=== PATIENT | male | born 1965 | race Caucasian/White ===

== ENCOUNTER 2016-09-23 07:48 | Emergency (ER) | payer SELFPAY ==
[~2016-09-23] VITALS: Ht 190.5 cm; Wt 103.9 kg
[~2016-09-23 07:48] MED LIST: IBUP800T23 PO
[2016-09-23 07:56] VITALS: BP 140/101; PULSE 97; RESP 16; TEMP 98.8; O2SAT 98
[2016-09-23] MEDS ORDERED: HYDR-3516 PO (08:11)
[2016-09-23] MEDS ORDERED: AUGM875T PO (08:11)
--- NOTE | 2016-09-23 08:12 | PD ---
HPI Chief Complaint: Laceration/Skin Injury Time Seen by Provider: 08:05 Travel History International Travel<30 days: No Contact w/Intl Traveler<30days: No Traveled to known affect area: No History of Present Illness HPI She presents for laceration on his right hand. States he was at [employer] yesterday at approximately 4 PM when he cut his hand on a piece of metal. Tetanus is not up-to-date. Reports cleaning the room and aggressively yesterday however it was painful overnight. Denies any nausea vomiting diarrhea or fever. PFSH Past Medical History Hx Anticoagulant Therapy: Yes (asa ?? dose) Depression: Yes Cardiovascular Problems: Yes (NOT ON MEDS) Diminished Hearing: No Hypertension: Yes Tetanus Vaccination: Unknown Social History Alcohol Use: Yes Tobacco Use: Yes (1 ppd) Substance Use: Yes (hx of cocaine) Allergies-Medications (Allergen,Severity, Reaction): Coded Allergies: No Known Allergies (Unverified , 09/23/16) Reported Meds & Prescriptions Reported Meds & Active Scripts Active No Active Prescriptions or Reported Medications Review of Systems General / Constitutional: No: Fever Eyes: No: Visual changes HENT: No: Headaches Cardiovascular: No: Chest Pain or Discomfort Respiratory: No: Shortness of Breath Gastrointestinal: No: Abdominal Pain Genitourinary: No: Dysuria Musculoskeletal: No: Pain Skin: No Rash Neurologic: No: Weakness Psychiatric: No: Depression Endocrine: No: Polydipsia Hematologic/Lymphatic: No: Easy Bruising Physical Exam Narrative GENERAL: Well-nourished, well-developed patient. SKIN: Warm and dry. HEAD: Normocephalic. EYES: No scleral icterus. No injection or drainage. NECK: Supple, trachea midline. No JVD or lymphadenopathy. CARDIOVASCULAR: Regular rate and rhythm without murmurs, gallops, or rubs. RESPIRATORY: Breath sounds equal bilaterally. No accessory muscle use. GASTROINTESTINAL: Abdomen soft, non-tender, nondistended. MUSCULOSKELETAL: No cyanosis, or edema. BACK: Nontender without obvious deformity. No CVA tenderness. Examination of the right hand reveals a 1.5 cm laceration to the lateral aspect of the PIP joint first finger without drainage or discharge there is some swelling without cellulitic change Data Data Last Documented VS Vital Signs Date Time Temp Pulse Resp B/P Pulse Ox O2 Delivery O2 Flow Rate FiO2 2/4/17 07:56 98.8 97 16 140/101 98 [facility] Medical Decision Making Medical Screen Exam Complete: Yes Emergency Medical Condition: Yes Differential Diagnosis Laceration, cellulitis, foreign body, fracture Narrative Course Assessment and plan discussed with patient at bedside, tetanus provided Diagnosis Primary Impression: Laceration of right hand with delay in treatment Qualified Code: S61.411A - Laceration of right hand with delay in treatment, initial encounter Patient Instructions: General Instructions Additional Instructions: Encouraged to continue general wound care, keep wound clean and dry, antibiotic and pain medication as prescribed Med/Other Pt SpecificInfo: Prescription(s) given Scripts Amoxicillin-Clavulanate (Augmentin)875-125 mg [id number] Mg PO BID #10 TAB Ref 0 not for use in CrCl <30 ml/min. Prov:Krish Garay MD 09/23/16 Hydrocodone-Acetaminophen 5-325 mg Tab1 Tab PO Q6H PRN (PAIN) #20 TAB Ref 0 Prov:Krish Garay MD 09/23/16 Disposition: 01 DISCHARGE HOME Condition: Good Krish Garay MD Sep 23, 2016 08:12
[2016-09-23] MEDS ORDERED: TETANUS/DIPHTHERIA TOXOID ADULT 0.5 ML VIAL IM ONE (08:15)
== END 2016-09-23 08:19 | disposition home or self-care (01) ==
LOC: PHED 07:48
DX: S61.411A Laceration without foreign body of right hand, initial encounter (principal); I10 Essential (primary) hypertension; Z23 Encounter for immunization; Z79.01 Long term (current) use of anticoagulants; F17.210 Nicotine dependence, cigarettes, uncomplicated; W45.8XXA Other foreign body or object entering through skin, initial encounter; Y92.512 Supermarket, store or market as the place of occurrence of the external cause; Y99.8 Other external cause status
CPT/HCPCS: 90471; 90714

== ENCOUNTER 2016-10-05 08:48 | Emergency (ER) | payer SELFPAY ==
[~2016-10-05] VITALS: Ht 190.5 cm; Wt 104.9 kg
[~2016-10-05 08:48] MED LIST changes: +AUGM875T PO; +HYDR-3516 PO; -IBUP800T23 PO
[2016-10-05 08:54] VITALS: PULSE 95; RESP 16; TEMP 97.8; O2SAT 97
--- NOTE | 2016-10-05 09:36 | PD ---
HPI Chief Complaint: Injury Time Seen by Provider: 09:17 Travel History International Travel<30 days: No Contact w/Intl Traveler<30days: No Traveled to known affect area: No History of Present Illness HPI This patient complains of pain in his right heel. 2 days ago he fell off of a ladder straight down onto his right heel. He reports that he fell about 10 feet. He was wearing work boots. Now his right heel pain which is worse with weightbearing. He is no other complaint. He has no neck or back pain or leg pain. Severity symptoms is moderate. No alleviating factors. PFSH Past Medical History Hx Anticoagulant Therapy: Yes (asa ?? dose) Depression: Yes Cardiovascular Problems: Yes (NOT ON MEDS) Diminished Hearing: No Hypertension: Yes Social History Alcohol Use: Yes Tobacco Use: Yes (1 ppd) Substance Use: Yes (hx of cocaine) Allergies-Medications (Allergen,Severity, Reaction): Coded Allergies: No Known Allergies (Unverified , 10/05/16) Reported Meds & Prescriptions Reported Meds & Active Scripts Active No Active Prescriptions or Reported Medications Review of Systems General / Constitutional: No: Fever Eyes: No: Visual changes HENT: No: Headaches Cardiovascular: No: Chest Pain or Discomfort Respiratory: No: Shortness of Breath Gastrointestinal: No: Abdominal Pain Genitourinary: No: Dysuria Musculoskeletal: Positive: Pain Skin: No Rash Neurologic: No: Weakness Psychiatric: No: Depression Endocrine: No: Polydipsia Hematologic/Lymphatic: No: Easy Bruising Physical Exam Narrative SKIN: Inspection shows no rash or ulcers. Palpation shows no induration or nodules. Psych: Normal mood and affect. Normal insight and judgment. Right foot: No objective findings. There is no bruising or swelling but he is very tender in the calcaneus. Pulse and sensation intact Data Data Last Documented VS Vital Signs Date Time Temp Pulse Resp B/P Pulse Ox O2 Delivery O2 Flow Rate FiO2 10/05/16 08:54 97.8 95 16 97 Orders Foot, Heel Only ([id number]) (10/05/16 ) ^ Toro Bandage (10/05/16 10:08) Crutches (10/05/16 10:08) MDM Medical Decision Making Medical Screen Exam Complete: Yes Emergency Medical Condition: Yes Medical Record Reviewed: Yes Differential Diagnosis Calcaneal fracture, contusion, plantar fasciitis Narrative Course I have reviewed the patient's electronic medical record. I reviewed his right calcaneal x-rays which are negative for fracture but show a heel spur and degenerative change of the ankle I recommended podiatry or orthopedic follow-up. Recommended he ice elevate if needed. I gave him crutches and he requested an Toro wrap Pain medicine written Diagnosis Primary Impression: Contusion of right heel Qualified Code: S90.31XA - Contusion of right heel, initial encounter Additional Instructions: The patient was advised to follow up with travel med surg rn or orthopedist . The patient was warned about potential sedation for the medications they will receive on prescription. Avoid weightbearing while it is painful Med/Other Pt SpecificInfo: Prescription(s) given Scripts Acetaminophen-Codeine (Tylenol-Codeine #3)300-30 mg Tab1 Tab PO Q6HR PRN (PAIN) #20 TAB Ref 0 Prov:Yariel Bowie MD 10/05/16 Disposition: 01 DISCHARGE HOME Condition: Stable Yariel Bowie MD Oct 05, 2016 09:36
--- NOTE | 2016-10-05 09:58 | RADHPO ---
EXAM DATE/TIME: 10/05/2016 09:34 [facility] COMPARISON: ANKLE LEFT COMPLETE ([id number]), August 15, 2016, 9:15. INDICATIONS : Fell off ladder yesterday, pain in right heel MEDICAL HISTORY : left distal fibula fracture 2016 SURGICAL HISTORY : None. ENCOUNTER: Initial ACUITY: 1 day PAIN SCORE: 10/10 LOCATION: Right heel FINDINGS: The calcaneus is intact. There is a spur at the insertion of the plantar fascia. There are degenerati ve changes in the talocalcaneal joint posteriorly. No acute fracture is seen. CONCLUSION: Degenerative changes and heel spur. No acute fracture. Kannan Velasquez MD on October 05, 2016 at 9:56 Board Certified Radiologist. This report was verified electronically.
[2016-10-05] MEDS ORDERED: TYLETAB34 PO (10:10)
== END 2016-10-05 10:29 | disposition home or self-care (01) ==
LOC: PHEFT 08:48
DX: S90.31XA Contusion of right foot, initial encounter (principal); F17.210 Nicotine dependence, cigarettes, uncomplicated; F10.10 Alcohol abuse, uncomplicated; W11.XXXA Fall on and from ladder, initial encounter; Y93.89 Activity, other specified; Y99.9 Unspecified external cause status
CPT/HCPCS: 73650; 99283; E0113

== ENCOUNTER 2018-01-06 08:16 | Emergency (ER) | payer SELFPAY ==
[~2018-01-06] VITALS: Ht 188 cm; Wt 100.0 kg
[~2018-01-06 08:16] MED LIST changes: -AUGM875T PO; -HYDR-3516 PO; +TYLETAB34 PO
[2018-01-06 08:53] VITALS: PULSE 81; RESP 16; TEMP 97.7; O2SAT 99
[2018-01-06] MEDS ORDERED: MORPHINE SULFATE 4 MG/ML INJ IV PUSH ONE (09:15)
[2018-01-06] MEDS ORDERED: SODIUM CHLORIDE 0.9% FLUSH 10 ML FLUSH IVF PRN (09:15)
[2018-01-06] MEDS ORDERED: KETOROLAC TROMETHAMINE 30 MG/ML (IVP) VIAL IVP ONE (09:15)
[2018-01-06] MEDS ORDERED: CLINDAMYCIN INJ 900 MG in SODIUM CHLORIDE 0.9% INJ 100 ML IV ONE (09:15)
--- NOTE | 2018-01-06 09:22 | PD ---
HPI . Laceration Chief Complaint: Laceration/Skin Injury Time Seen by Provider: 09:07 Travel History International Travel<30 days: No Contact w/Intl Traveler<30days: No Traveled to known affect area: No History of Present Illness HPI Patient presents with the chief complaint of a laceration to his right index finger. He states that he cut it yesterday with a graphite grinder. He does not believe that there is a retained foreign body. He reports that his tetanus is up-to-date. Since the time of the accident, he has had increasing pain, redness and swelling starting at the laceration and radiating both proximally and distally. Pain is now rated 10/10. He reports an associated fever. Pain is exacerbated by movement and palpation. PFSH Past Medical History Hx Anticoagulant Therapy: Yes (asa ?? dose) Depression: Yes Cardiovascular Problems: Yes (NOT ON MEDS) Diminished Hearing: No Hypertension: Yes Social History Alcohol Use: Yes Tobacco Use: Yes (1 ppd) Substance Use: Yes (hx of cocaine) Allergies-Medications (Allergen,Severity, Reaction): Coded Allergies: No Known Allergies (Unverified Allergy, Unknown, 01/06/18) Reported Meds & Prescriptions Reported Meds & Active Scripts Active Tylenol-Codeine #3 (Acetaminophen-Codeine) 300-30 mg Tab 1 Tab PO Q6HR PRN Review of Systems Except as stated in HPI: all other systems reviewed are Neg General / Constitutional: Positive: Fever, Chills Musculoskeletal: Positive: Arthralgias, Limited ROM, Edema Skin: Positive Change in Pigmentation Physical Exam Narrative GENERAL: Awake and alert and in no acute distress. SKIN: Warm and dry. Redness, warmth, swelling and tenderness. Maximum at the PIP joint, which is where the laceration is. It radiates to the tip of the right index finger and radiates up to the right wrist. No crepitus palpated. HEAD: Normocephalic/atraumatic. EYES: Pupils are equal. Extraocular movements are intact. NECK: Normal range of motion. CARDIOVASCULAR: Regular rate and rhythm. RESPIRATORY: Nonlabored respirations. MUSCULOSKELETAL: Atraumatic. NEUROLOGICAL: Nonfocal. PSYCHIATRIC: Appropriate mood and affect. Data Data Last Documented VS Vital Signs Date Time Temp Pulse Resp B/P (MAP) Pulse Ox O2 Delivery O2 Flow Rate FiO2 01/06/18 08:53 97.7 81 16 99 Orders Orders Basic Metabolic Panel (Bmp) (01/06/18 09:12) Complete Blood Count With Diff (01/06/18 09:12) Blood Culture (01/06/18 09:12) Iv Access Insert/Monitor (01/06/18 09:12) Ketorolac Inj (Toradol Inj) (01/06/18 09:15) Sodium Chloride 0.9% Flush (Ns Flush) (01/06/18 09:15) Clindamycin Inj (Cleocin Inj) (01/06/18 09:15) Morphine Inj (Morphine Inj) (01/06/18 09:15) Finger ([id number]) (01/06/18 09:12) Labs Laboratory Tests Test 01/06/18 09:28 White Blood Count 6.5 TH/MM3 Red Blood Count 4.93 MIL/MM3 Hemoglobin 16.3 GM/DL Hematocrit 48.4 % Mean Corpuscular Volume 98.2 FL Mean Corpuscular Hemoglobin 33.0 PG Mean Corpuscular Hemoglobin Concent 33.6 % Red Cell Distribution Width 13.2 % Platelet Count 226 TH/MM3 Mean Platelet Volume 9.1 FL Neutrophils (%) (Auto) 73.3 % Lymphocytes (%) (Auto) 16.6 % Monocytes (%) (Auto) 8.7 % Eosinophils (%) (Auto) 0.9 % Basophils (%) (Auto) 0.5 % Neutrophils # (Auto) 4.8 TH/MM3 Lymphocytes # (Auto) 1.1 TH/MM3 Monocytes # (Auto) 0.6 TH/MM3 Eosinophils # (Auto) 0.1 TH/MM3 Basophils # (Auto) 0.0 TH/MM3 CBC Comment DIFF FINAL Differential Comment Blood Urea Nitrogen 11 MG/DL Creatinine 0.86 MG/DL Random Glucose 96 MG/DL Calcium Level 8.8 MG/DL Sodium Level 139 MEQ/L Potassium Level 4.1 MEQ/L Chloride Level 107 MEQ/L Carbon Dioxide Level 25.4 MEQ/L Anion Gap 7 MEQ/L Estimat Glomerular Filtration Rate 93 ML/MIN [facility] Medical Decision Making Medical Screen Exam Complete: Yes Emergency Medical Condition: Yes Differential Diagnosis My differential diagnosis includes but is not limited to localized wound infection, cellulitis, abscess Narrative Course This patient presents with a laceration to his left index finger which has rapidly become infected. This tetanus is up-to-date. An x-ray is pending to rule out a foreign body or fracture. An IV has been started. He will be given IV clindamycin, Toradol and morphine. CBC and blood cultures are also pending. CBC & BMP Diagram 01/06/18 09:28 Calcium Level 8.8 Last Impressions Finger X-Ray 01/06/18 0912 Signed Impressions: Service Date/Time: Saturday, January 06, 2018 09:34 - CONCLUSION: 1. Osseous structures the 2nd digit are intact. 2. 2nd digit soft tissue swelling without radiopaque foreign body. Martin Atwood MD Currently, this patient appears to be stable for discharge and treatment as an outpatient. I will give him strict return instructions. He will be discharged with prescriptions for clindamycin, Relafen and [place]. E force was queried and reviewed. Diagnosis Primary Impression: Cellulitis of right hand Patient Instructions: Cellulitis (DC), General Instructions, Narcotic given in the ED Additional Instructions: Antibiotics as directed. Return if symptoms worsen, especially if you start to run fever. This should start to get better within the next couple of days. If it does not, return for recheck. Med/Other Pt SpecificInfo: Prescription(s) given Scripts Hydrocodone-Acetaminophen ([place]) 5 Mg-325 Mg Tab 1 TAB PO Q4H Y for PAIN, #12 TAB 0 Refills Prov: Beronica Narvaez MD 01/06/18 Nabumetone (Nabumetone) 500 Mg Tab 500 MG PO BID for Pain-Inflammation, #60 TAB 0 Refills Prov: Beronica Narvaez MD 01/06/18 Clindamycin (Clindamycin) 300 Mg Cap 600 MG PO Q8H for Infection for 10 Days, #60 CAP 0 Refills Prov: Beronica Narvaez MD 01/06/18 Disposition: DISCHARGE HOME Condition: Stable Beronica Narvaez MD January 06, 2018 09:22
[2018-01-06 10:11] LABS: AUTOMATED NEUTROPHIL # 4.8 TH/MM3 (1.8-7.7); BASOPHIL % 0.5 % (0.0-2.0); EOSINOPHIL # 0.1 TH/MM3 (0-0.4); EOSINOPHIL % 0.9 % (0.0-4.0); HEMATOCRIT 48.4 % (39.0-51.0); HEMOGLOBIN 16.3 GM/DL (13.0-17.0); LYMPH % 16.6 % (9.0-44.0); LYMPHOCYTE # 1.1 TH/MM3 (1.0-4.8); MEAN CELL VOLUME 98.2 FL (80.0-100.0); MEAN CORPUSCULAR HGB CONC 33.6 % (32.0-36.0); MEAN PLATELET VOLUME 9.1 FL (7.0-11.0); MONO % 8.7 % (0.0-8.0); MONOCYTE # 0.6 TH/MM3 (0-0.9); NEUT % 73.3 % (16.0-70.0); PLATELET COUNT 226 TH/MM3 (150-450); RED BLOOD COUNT 4.93 MIL/MM3 (4.50-5.90); RED CELL DISTRIBUTION WIDTH 13.2 % (11.6-17.2); WHITE BLOOD COUNT 6.5 TH/MM3 (4.0-11.0)
--- NOTE | 2018-01-06 10:14 | RADRPT ---
EXAM DATE/TIME: 01/06/2018 09:34 [facility] COMPARISON: No previous studies available for comparison. INDICATIONS : Pain, swelling, reddness and laceration right 2nd finger, cut MEDICAL HISTORY : Fracture right hand SURGICAL HISTORY : None. ENCOUNTER: Initial ACUITY: 2 days PAIN SCORE: 10/10 LOCATION: Right Hand 2nd finger FINDINGS: Examination of the second digit of the right hand demonstrates no evidence of fracture or dislocation . No radiopaque foreign bodies are seen. The soft tissues are intact. CONCLUSION: 1. Osseous structures the 2nd digit are intact. 2. 2nd digit soft tissue swelling without radiopaque foreign body. Martin Atwood MD on January 06, 2018 at 10:12 Board Certified Radiologist. This report was verified electronically.
[2018-01-06 10:22] LABS: BICARBONATE 25.4 MEQ/L (21.0-32.0); CALCIUM 8.8 MG/DL (8.5-10.1); CREATININE 0.86 MG/DL (0.60-1.30)
[2018-01-06] MEDS ORDERED: NABU1TAB37 PO (10:27)
[2018-01-06] MEDS ORDERED: NORC5TAB PO (10:27)
[2018-01-06] MEDS ORDERED: CLIN300C5 PO (10:27)
== END 2018-01-06 10:44 | disposition home or self-care (01) ==
LOC: NEPD 08:16
DX: L03.113 Cellulitis of right upper limb (principal); I10 Essential (primary) hypertension; F17.210 Nicotine dependence, cigarettes, uncomplicated
CPT/HCPCS: 73140; 80048; 85025; 87040; 96374; 96375; 99284; J1885; J2270

== ENCOUNTER 2018-01-27 23:43 | Emergency (ER) | payer SELFPAY ==
[~2018-01-27] VITALS: Ht 190.5 cm; Wt 98.0 kg
[~2018-01-27 23:43] MED LIST changes: +CLIN300C5 PO; +NABU1TAB37 PO; +NORC5TAB PO
[2018-01-27 23:50] VITALS: BP 151/84; PULSE 103; RESP 18; TEMP 98.8; O2SAT 98
[2018-01-28 00:19] VITALS: BP 145/78; PULSE 102; RESP 18; O2SAT 98
== END 2018-01-28 00:55 | disposition left against medical advice (07) ==
LOC: NEPC 23:59
DX: Z53.21 Procedure and treatment not carried out due to patient leaving prior to being seen by health care provider (principal)
CPT/HCPCS: 99281